=== PATIENT | male | born 1960 | race Caucasian/White ===

== ENCOUNTER → 2019-05-09 13:49 | Outpatient (CLI) | payer OTHER, SELFPAY ==
--- NOTE | 2019-05-09 15:02 | PM.TREADMILL ---
Cardiac Stress Test Report Referral & Results Date Patient Seen: 05/09/19 Requesting provider: Shell Pablo Indication: Chest discomfort Rest ECG: Nonspecific interventricular conduction delay Procedure Note: Today following both written and verbal informed consent the patient was exercised according to a standard Dominik protocol patient went for a total of 7 minutes 45 seconds achieving a maximum heart rate of 155 maximum systolic blood pressure of 164. This is approximately 10.1 METS. Exercise was terminated at this point because of targets were met and patient was unable to continue. Patient was also given Cardiolite through a previously started Hep-Lock IV by the diagnostic imaging staff approximately 1 minute prior to the cessation of exercise. No ST-T segment changes Normal heart rate and blood pressure response Occasional PAC and rare PVC Functional aerobic impairment rates about 5% of the sedentary scale Impression: No ECG evidence of ischemia Please see perfusion imaging report as well Please note: Actual ECG tracings can be found in the PACS system.
--- NOTE | 2019-05-10 18:02 | DI.NM.S_ITS ---
DATE OF SERVICE: 05/09/2019 PROCEDURE: Exercise perfusion study. INDICATIONS: Chest pain with underlying diabetes mellitus, hypertension, and hyperlipidemia. RADIOPHARMACEUTICAL: 25.7 mCi technetium-99m Myoview IV was injected at stress and 26.3 mCi technetium-99m Myoview IV was injected at rest. CARDIAC STRESS: Patient underwent exercise perfusion study under the supervision of an attending staff. He walked on Dominik protocol for 7 minutes 56 seconds, achieved 96% of target heart rate, normal blood pressure response. Baseline EKG revealed sinus rhythm with right bundle branch block, left anterior fascicular block, and some artifacts. During stress, there was no convincing ischemic changes seen. There were some intermittent PACs, and PVCs were seen. No ventricular tachycardia. Patient felt fatigue. Functional aerobic impairment +5%. Patient achieved 10.1 METs of workload. RAW DATA: There was increased of diaphragmatic activity. Patient's weight is 278 pounds. GATED STUDY: Resting LV ejection fraction 71% and stress LV ejection fraction 80% without any obvious wall motion abnormalities. Resting end-diastolic volume is 98 mL. No transient ischemic dilatation. TID ratio is 0.98, which is within normal limits. Lung/heart ratio is 0.30, which is within normal limits. MYOCARDIAL PERFUSION SCAN: Stress supine, resting supine, and stress prone images were compared to each other. Stress and resting supine images revealed moderate-sized mild--to moderately decreased perfusion of distal inferior wall, inferior apex which got resolved during prone images suggestive of diaphragmatic tissue attenuation artifact. No convincing ischemia or infarction pattern during stress prone images. CONCLUSION: I will call this study a normal myocardial perfusion study with evidence of diaphragmatic tissue attenuation artifact scan as stated above which got resolved during prone images. Overall, left ventricular (LV) function is preserved. This is a low-risk myocardial perfusion scan. June Sebastian - [employer] DEVELOPER/verna/ doc#: [id number]/job#: [id number] dd: 05/10/2019 16:33:00 dt: 05/10/2019 17:55:00 DICTATING MD/COPIES TO: Davin Brasher MD COPIES MNE: DRISS
== END ==
PROVIDERS: PCP Physician Assistant Medical; Visit Provider Physician Assistant Medical
DX: R07.89 Other chest pain (principal); E11.9 Type 2 diabetes mellitus without complications; I10 Essential (primary) hypertension; E78.5 Hyperlipidemia, unspecified
CPT/HCPCS: 78452; 93016; 93017; 93018; A9502

== ENCOUNTER → 2020-10-07 15:18 | Outpatient (CLI) | payer OTHER, SELFPAY ==
--- NOTE | 2020-10-07 15:19 | DI.MRI.S_ITS ---
PROCEDURE: MR ANKLE LT WO CON INDICATIONS: Pain in left ankle TECHNIQUE: Noncontrast sagittal T1 spin echo and T2 fast spin echo with fat saturation, axial proton density fast spin echo and T2 fast spin echo with fat saturation, coronal T1 spin echo and T2 fast spin echo with fat saturation through the ankle/hindfoot. COMPARISON: None. FINDINGS: Image quality: Excellent. Bones and joints: There is marrow edema involving base of medial malleolus with a nondisplaced fracture line within the area of edema. Significant edema is also noted involving distal tibial plafond. There is marrow edema and cortical irregularity involving medial periphery of talar dome suggestive of developing osteochondral lesion in this area measures up to 1.5 x 0.4 x 0.5 cm in size. No other area of abnormal marrow signal is seen. No hindfoot fusion. Small amount of tibiotalar and subtalar joint fluid is seen. Soft tissue swelling and edema surrounding ankle joint is noted. Medial structures: Low-grade tenosynovitis involving posterior tibialis tendon is seen with small amount of fluid distending tendon sheath. The flexor digitorum longus, and flexor hallucis longus tendons are intact. The posterior tibial neurovascular bundle appears normal within the tarsal tunnel, without extrinsic mass effect. The deep layer (anterior and posterior tibiotalar ligaments) and superficial layer (tibionavicular, tibiospring, and tibiocalcaneal ligaments) of the deltoid ligament appear normal. The spring ligament components (superomedial calcaneonavicular, medioplantar oblique calcaneonavicular, and inferoplantar longitudinal ligaments) are intact. Lateral structures: The anterior talofibular, calcaneofibular, and posterior talofibular ligaments appear thickened with heterogeneous intrasubstance T2 hyperintense signal suggestive of sprain/low-grade partial-thickness tear. More superiorly, the anterior and posterior tibiofibular ligaments appear intact, as is the intermalleolar ligament. The tibiofibular syndesmosis is normal in width at 2 mm or less. The peroneus longus and brevis tendons demonstrate normal location and morphology. Adjacent bony peroneal tubercle and retrotrochlear prominence are normal in size. The sinus tarsi demonstrates normal fatty signal, without edema, fibrosis, or cyst formation. Visualized sinus tarsi components (cervical ligament, interosseous talocalcaneal ligament, roots of the inferior extensor retinaculum) appear normal. The calcaneonavicular and calcaneocuboid components of the bifurcate ligament appear intact. The dorsal calcaneocuboid ligament appears intact. Anterior structures: The tibialis anterior, extensor hallucis longus, and extensor digitorum longus tendons appear intact. The dorsal talonavicular ligament appears intact. Posterior and plantar structures: Achilles tendon is thickened at its insertion of posterior calcaneus with mild intrasubstance T2 hyperintense signal. Medial and lateral bands of the plantar fascia are of normal thickness. No abductor digiti quinti muscle atrophy to suggest Dupree neuropathy. IMPRESSION: 1. Acute to subacute appearing nondisplaced fracture involving distal tibia/base of medial malleolus. Suggestion of bony contusion in distal tibial plafond. 2. Contusion versus developing osteochondral lesion involving medial periphery of talar dome and measures up to 1.5 x 0.4 x 0.5 cm in size. 3. Low-grade tenosynovitis involving posterior tibialis tendon. 4. Tendinosis and low-grade intrasubstance partial-thickness tear involving distal Achilles tendon at its posterior calcaneal insertion. No full-thickness Achilles tendon rupture. 5. Low-grade sprain/partial-thickness tear involving anterior and posterior talofibular ligaments and calcaneofibular ligament. Dictated by: Ba Marin M.D. on 10/07/2020 at 16:31 Approved by: Ba Marin M.D. on 10/07/2020 at 16:37
== END ==
PROVIDERS: PCP Physician Assistant Medical; Referring Provider Podiatrist; Visit Provider Podiatrist
DX: M25.572 Pain in left ankle and joints of left foot (principal); S82.55XA Nondisplaced fracture of medial malleolus of left tibia, initial encounter for closed fracture; M65.872 Other synovitis and tenosynovitis, left ankle and foot; S86.012A Strain of left Achilles tendon, initial encounter; S93.492A Sprain of other ligament of left ankle, initial encounter; S93.412A Sprain of calcaneofibular ligament of left ankle, initial encounter; X58.XXXA Exposure to other specified factors, initial encounter
CPT/HCPCS: 73721

== ENCOUNTER → 2021-10-03 18:09 | Outpatient (CLI) | payer OTHER, SELFPAY ==
--- NOTE | 2021-10-03 18:11 | DI.MRI.S_ITS ---
PROCEDURE: MR HEAD/BRAIN WO/W CON INDICATIONS: CVA TECHNIQUE: Noncontrast axial T1 spin echo, axial T2 fast spin echo, sagittal and axial FLAIR, coronal T2 fast spin echo, axial gradient echo, axial diffusion and ADC through the brain. After the administration of contrast, axial and coronal T1 spin echo with fat saturation through the brain. COMPARISON: None. FINDINGS: Image quality: Excellent. CSF spaces: Basal cisterns are patent. No extra-axial fluid collections. Ventricles are normal in size and shape. Brain: No midline shift. No intracranial bleeds or masses. No abnormal intracranial enhancement. There is cerebral volume loss for age. The brainstem appears normal. Diffusion-weighted images demonstrate a 6 mm focus of elevated signal intensity within the left posterior centrum semiovale, which demonstrates moderate FLAIR signal elevation.. No chronic ischemic insults. Normal intravascular flow voids are present. Skull and face: Calvarial marrow is normal in signal. Orbits appear normal. Sinuses: Sinuses and mastoids appear clear. IMPRESSION: 1. Small subacute infarct within the left posterior centrum semiovale. 2. Mild volume loss. Dictated by: Nan Paige M.D. on 10/06/2021 at 8:26 Approved by: Nna Paige M.D. on 10/06/2021 at 8:28
== END ==
PROVIDERS: PCP Physician Assistant Medical; Referring Provider Family Medicine; Visit Provider Family Medicine
DX: I63.9 Cerebral infarction, unspecified (principal)
CPT/HCPCS: 70553; A9579

== ENCOUNTER → 2023-09-15 11:42 | Outpatient (CLI) | payer OTHER, SELFPAY ==
--- NOTE | 2023-09-15 11:44 | DI.MRI.S_ITS ---
PROCEDURE: MR CERVICAL SPINE WO CON INDICATIONS: Spinal stenosis, cervical region TECHNIQUE: Noncontrast sagittal T1 spin echo and T2 fast spin echo, sagittal STIR, foraminal oblique sagittal T2 fast spin echo, and axial gradient echo or T2 fast spin echo through the cervical spine. COMPARISON: [facility] [place], [place], XR CERVICAL SPINE 2 OR 3 VIEWS, 02/19/2022, 16:22. FINDINGS: Image quality: This examination is limited by involuntary motion artifact. Alignment and Curvature: There is overall straightening of the normal cervical lordosis. No focal AP alignment abnormality is seen. Bone Marrow: Marrow demonstrates normal overall signal. Spinal Cord: Visualized spinal cord has normal size and signal. No cerebellar tonsillar herniation. Paraspinous Soft Tissues: No paravertebral masses. Prevertebral soft tissues are normal in thickness. C2-C3: No significant abnormality is seen. C3-C4: [id number] loss of disc height and disc signal can be seen. Moderate generalized disc osteophyte complex is seen. There is a central disc osteophyte protrusion. At least moderate facet hypertrophy can be seen. There is moderate to severe bilateral neural foraminal narrowing. Mild to moderate central canal narrowing is seen, with associated mild mass effect upon the ventral spinal cord. C4-C5: Mild loss of disc height is seen. Loss of disc signal is seen. Moderate disc osteophyte complex is seen, which is eccentric to the left. Mild to moderate facet hypertrophy is seen. There is moderate to severe left-sided and at least moderate right-sided neural foraminal narrowing. Mild central canal narrowing is seen. C5-C6: Moderate loss of disc height is seen. Loss of disc signal is seen. Moderate generalized disc osteophyte complex is seen. There is a central disc osteophyte protrusion. Uncovertebral joint hypertrophy is seen at this level. Moderate facet joint hypertrophy is seen. Moderate to severe bilateral neural foraminal narrowing can be seen, left worse than right. Moderate central canal narrowing is seen. There is associated mass effect upon the ventral spinal cord. C6-C7: Mild loss of disc height is seen. Loss of disc signal is seen. Moderate disc osteophyte complex is seen, which is eccentric to the right. Mild to moderate facet hypertrophy can be seen. There is moderate to severe right-sided and moderate left-sided neural foraminal narrowing. Mild to moderate central canal narrowing is seen at this level. C7-T1: The disc height and disk signal are well-preserved. Mild to moderate disc osteophyte complex is seen. Mild to moderate facet hypertrophy is seen. There is [id number] right-sided and no significant left-sided neural foraminal narrowing. No central canal narrowing is seen. IMPRESSION: Multiple levels of significant cervical spine degenerative change can be seen, which are overall worst inferiorly. Several sites of moderate to severe neural foraminal narrowing can be seen. Straightening of the normal cervical lordosis is seen, which is commonly observed in patients with muscular spasm. Dictated by: Washington Perdue M.D. on 09/15/2023 at 15:42 Approved by: Washington Perdue M.D. on 09/15/2023 at 15:46
== END ==
PROVIDERS: PCP Internal Medicine; Referring Provider Orthopaedic Surgery Orthopaedic Surgery of the Spine; Visit Provider Orthopaedic Surgery Orthopaedic Surgery of the Spine
DX: M48.02 Spinal stenosis, cervical region (principal); M47.812 Spondylosis without myelopathy or radiculopathy, cervical region
CPT/HCPCS: 72141

== ENCOUNTER → 2024-11-24 16:10 | Outpatient (CLI) | payer OTHER, SELFPAY ==
--- NOTE | 2024-11-24 16:22 | EKG_ITS ---
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
[2024-11-24 17:30] LABS: Add Manual Diff / Slide Review NO; Basophils Absolute Auto 100 /uL (0-100); Basophils Percent Auto 0.5 % (0-2); Eosinophils Absolute Auto 300 /uL (0-450); Eosinophils Percent Auto 3.3 % (2-4); Hematocrit 43.4 % (41-53); Hemoglobin 14.9 g/dL (13.5-17.5); Lymphocytes Absolute Auto 3900 /uL (1100-4500); Lymphocytes Percent Auto 40.6 % (25-40); Mean Corpuscular HGB Conc 34.3 % (30-36); Mean Corpuscular Volume 87.5 fL (80-100); Monocytes Absolute Auto 700 /uL (0-900); Monocytes Percent Auto 7.7 % (3-14); Neutrophils Absolute Auto 4700 /uL (1500-7000); Neutrophils Percent Auto 47.9 % (50-75); Platelet Count 248 X10^3/uL (150-400); Red Blood Cell Count 4.96 X10^6/uL (4.5-5.9); Red Cell Distribution Width 13.6 % (11.6-14.8); White Blood Cell Count 9.7 X10^3/uL (4.5-11.0)
[2024-11-24 17:30] LABS: Appearance Urine UA CLEAR; Bilirubin Urine UA NEGATIVE (NEGATIVE); Color Urine UA YELLOW; Glucose Urine UA TRACE g/dL (Negative); Ketones Urine UA NEGATIVE (NEGATIVE); Leukocyte Esterase Urine UA NEGATIVE (NEGATIVE); Nitrite Urine UA NEGATIVE (Negative); Occult Blood Urine UA NEGATIVE (Negative); Protein Urine UA NEGATIVE (Negative); Urobilinogen Urine UA 0.2 E.U./dL (0.2); pH Urine UA 5.5 (4.5-8.0)
[2024-11-24 17:44] LABS: Hemoglobin A1C% w Est Avg Glu 6.3 % (4.0-6.0)
[2024-11-24 17:45] LABS: Bacteria Urine Occasional (0-1); Culture Indicated Urine Cult Not Indicated; RBC Urine None Seen (0-5/HPF); Squamous Epithelial Cell Urine 0-1 /HPF (0-5/HPF); Urine Volume 10mL (spun); WBC Urine None Seen (0-5/HPF)
[2024-11-24 17:51] LABS: BUN Creatinine Ratio 21.3 (6-22); Blood Urea Nitrogen 20 mg/dL (9-20); Calcium 9.2 mg/dL (8.4-10.2); Carbon Dioxide 25 mmol/L (22-32); Chloride 104 mmol/L (98-107); Estimated Glomerular Filt Rate > 60 mL/min (>60); Glucose 87 mg/dL (70-99); HEMOLYSIS < 15 (0-50); Potassium 4.1 mmol/L (3.4-5.1); Sodium 137 mmol/L (137-145)
== END ==
PROVIDERS: PCP Internal Medicine; Visit Provider Orthopaedic Surgery
DX: Z01.818 Encounter for other preprocedural examination (principal); Z01.812 Encounter for preprocedural laboratory examination; R73.9 Hyperglycemia, unspecified; N39.0 Urinary tract infection, site not specified
CPT/HCPCS: 36415; 80048; 81001; 83036; 85025; 93005; 93010